=== PATIENT | female | born 1980 | race Caucasian/White ===

== ENCOUNTER 2021-11-04 18:17 | Emergency (ER) | payer OTHER ==
[2021-11-04 18:23] VITALS: BP 139/86
--- NOTE | 2021-11-04 18:36 | ED Upper Extremity ---
General Chief Complaint: Upper Extremity Stated Complaint: RT HAND INJ History of Present Illness Date Seen by Provider: Nov 04, 2021 Time Seen by Provider: 18:15 Initial Comments This non- 41 y/o female smoker fell 2 hours ago on outstretched RUE and injured her wrist causing severe pain, which she rates as 8/10 "not quite childbirth" and denies LOC or pain elsewhere and denies ETOH or drugs. She is visiting from [facility] and plans to return there before morning if possible. She denies ongoing chronic health issues or current pain medicine and denies allergies to pain meds Onset: just prior to arrival Severity: severe Pain/Injury Location: right wrist Method of Injury: fell Modifying Factors: Improves With Movement Allergies and Home Medications Allergies Coded Allergies: duloxetine (Verified Allergy, Unknown, 11/04/21) strawberry (Verified Allergy, Unknown, 11/04/21) Patient Home Medication List Home Medication List Reviewed: No Review of Systems Constitutional: no symptoms reported : No Musculoskeletal: No back pain; joint pain (right wrist); No muscle weakness, No neck pain Skin: no symptoms reported; No lesions Psychiatric/Neurological: No Symptoms Reported; Denies Headache, Denies Numbness, Denies Pre-Existing Deficit, Denies Weakness Physical Exam Vital Signs Vital Signs - First Documented 11/04/21 18:23 Temp 36.5 Pulse 101 Resp 20 B/P (MAP) 139/86 (103) Pulse Ox 97 O2 Delivery Room Air Capillary Refill : Height, Weight, BMI Height: '" Weight: lbs. oz. kg; BMI Method: General Appearance: WD/WN, moderate distress HEENT: normal ENT inspection Neck: supple Cardiovascular: normal peripheral pulses Respiratory: no respiratory distress, no accessory muscle use Shoulder: normal inspection, non-tender, no evidence of injury, normal ROM Elbow/Forearm: normal inspection, non-tender, no evidence of injury, normal ROM Wrist: No abrasions; Yes bone tenderness (rigght, especially snuff box; left nontender); No deformity, No ecchymosis; Yes limited ROM, Yes pain; No swelling Hand: normal inspection, no evidence of injury, normal ROM, Right, Left Neurologic/Tendon: normal sensation, normal motor functions, normal tendon functions Neurologic/Psychiatric: alert, oriented x 3 Skin: normal color, warm/dry Procedures/Interventions Splinting and Joint Reduction : Pre-Proc Neuro Vasc Exam: normal Post-Proc Neuro Vasc Exam: normal Splints: Thumb/Wrist Spica (orthoglass) Hand-Made Type: fiberglass Splint Application: Short Arm Progress/Results/Core Measures Results/Orders My Orders Orders - ASHKAN EASTON MD Wrist 3 View Right (11/04/21 18:29) Ondansetron Oral Dissolve Tab (Zofran (11/04/21 18:37) Morphine Injection (Morphine Injection (11/04/21 18:37) Rx-Hydrocodone/Apap 5-325 Mg (Rx-Vicodin (11/04/21 19:00) Medications Given in ED Current Medications Medications Dose Ordered Sig/Sharon Route Start Time Stop Time Status Last Admin Dose Admin Acetaminophen/ Hydrocodone Bitart 1 ea Q6H PRN PO 11/04/21 19:00 11/04/21 19:03 1 EA Vital Signs/I&O 11/04/21 18:23 Temp 36.5 Pulse 101 Resp 20 B/P (MAP) 139/86 (103) Pulse Ox 97 O2 Delivery Room Air Departure Communication (Admissions) X-ray does not show obvious fracture or dislocation; will splint in thumb spica as possible carpal navicular fx. Local pharmacy closed. 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 Decision time for Depature: 19:08 Referrals: NO,LOCAL PHYSICIAN (PCP) Primary Care Physician Patient Instructions: Preventing Falls ED, Wrist Fracture (DC), Acute Pain, Adult (DC), Acute Pain, Adult ASHKAN EASTON MD Nov 04, 2021 18:36
[2021-11-04] MEDS ORDERED: morphine INJ 10 MG/ML 1ML (SYR OR VIAL) IM STA (18:37)
[2021-11-04] MEDS ORDERED: ONDANSETRON 4 MG (ZOFRAN) ORAL DISSOLVE TAB PO STA (18:37)
--- NOTE | 2021-11-04 18:45 | Diagnostic Imaging Report ---
EXAMINATION: Right wrist, 2 views. HISTORY: Wrist injury. COMPARISON: None available. FINDINGS: Alignment is normal. No fracture is seen. Joint spaces are normal. IMPRESSION: No fracture. Dictated by: Dictated on workstation # [id number]
== END 2021-11-04 19:13 | disposition home or self-care (01) ==
LOC: ER FS 18:19
DX: M25.531 Pain in right wrist (principal)
CPT/HCPCS: 29125; 73110